=== PATIENT | male | born 1960 | race Caucasian/White ===

== ENCOUNTER 2016-12-07 07:37 | Day surgery (SDC) | payer OTHER ==
[~2016-12-07] VITALS: Ht 170.2 cm; Wt 68.5 kg
[~2016-12-07 07:37] MED LIST: CIPRO 500MG TA500 MG PO; FLAGYL 500MG.500 MG PO; LORTAB 5/500 501 TAB PO; NEOSPORIN1 OIN TP; NOMEDS *; ONE DAILY ESSEN1 TA2 PO
--- NOTE | 2016-12-07 12:31 | Anesthesia Record ---
Anesthesia Record Part I Total IV fluids: 800 EBL (ml): 10 Urine Output: 0 B/P: 141/75 % SaO2: 97 Pulse: 106 Resps: 12 Temp: 97.0 Patient is: Drowsy, Stable Stable to PACU at: 1222 at 1230
--- NOTE | 2016-12-07 12:32 | Anesthesia Record ---
Anesthesia Record Part II Discharge time: 1252 Destination: Same day surgery PACU nurse assessment review? Yes Patient is: Awake, Stable Anesthesia complications? No at 1239
[2016-12-07 14:16] VITALS: BP 130/83
--- NOTE | 2016-12-13 16:10 | Operative Note ---
Other ENT Procedure Date of Procedure: 12/07/16 Time of Procedure: 0900 Procedure performed: 1. Right modified neck disection Pre-op diagnosis: 1. right deep cervical lymphadenopathy level 2 and 3 Post-op diagnosis: 1. right deep cervical lymphadenopathy 2. Deep right cervical mass extending between the carotid bifurcaution Surgeon: Reynaldo Melchor Anesthesia: general Pre-procedure antibiotics: Ancef 1 gm Pre-procedure steroid: Decadron 12 mg Description of procedure: With patient under general anesthesia the RIGHT neck was prepped and draped. An extended RIGHT of mid neck incision was marked out and skin subcutaneous tissue and platysma were incised. The sternomastoid muscle was identified, and mobilized. The spinal accessory nerve was identified and preserved. There was multiple lymph nodes at level II and 3. And deep to this conglomeration of nodes was a hard mass which extended between the carotid bifurcation to the pharynx. It was a hard mass with a cystic components on the surface. It had a different appearance from the surrounding deep cervical nodes. 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 All of the deep cervical nodes in the level II and 3 were mobilized and submitted. The deep cervical mass was from the internal and external carotid arteries and from the carotid bifurcation. And followed through to its attachment to the hypopharynx. It was i from the hypopharynx and submitted in entirety. There was a small adjoining cystic component which ruptured and cultures were taken for anaerobes and C and S. Wound was thoroughly irrigated all the bleeding was stopped LEFT loss for all the procedure was less than 10mL. Surgical Snow was placed in the depth of the dissection. And the neck was closed in the usual fashion with 2-0 Vicryl on the platysma and subcutaneous layer. And Dermabond on the skin. Dressings were applied. And the patient was sent to recovery in good general condition. EBL (ml): 9 at 1865
== END 2016-12-07 13:30 | disposition home or self-care (01) ==
LOC: SDC 07:37
PROVIDERS: Otolaryngology
PROC: 07T10ZZ Resection of Right Neck Lymphatic, Open Approach (ICD-10-PCS; principal; 2016-12-07 09:00)
DX: R59.0 Localized enlarged lymph nodes (principal); D49.89 Neoplasm of unspecified behavior of other specified sites
CPT/HCPCS: J0330; J2405